=== PATIENT | female | born 1990 | race Caucasian/White ===

== ENCOUNTER 2021-08-13 15:54 | Emergency (ER) | payer OTHER, BC ==
[~2021-08-13] VITALS: Ht 167 cm; Wt 51.9 kg
[2021-08-13 16:06] VITALS: BP 127/76
[2021-08-13] MEDS ORDERED: KETOROLAC 30 MG/ML VIAL IVP STA (16:23)
[2021-08-13] MEDS ORDERED: ONDANSETRON 4 MG/2 ML (SDV) Z0FRAN IVP STA (16:23)
[2021-08-13] MEDS ORDERED: NS IV 1000 ML 1,000 ML IV STA (16:23)
[2021-08-13 16:28] LABS: BILIRUBIN,URINE NEGATIVE (NEGATIVE); CLARITY,URINE SL CLOUDY; COLOR,URINE YELLOW; GLUCOSE, URINE (UA) NEGATIVE (NEGATIVE); KETONES,URINE NEGATIVE (NEGATIVE); LEUKOCYTE ESTERASE ,URINE 1+ (NEGATIVE); NITRITE,URINE NEGATIVE (NEGATIVE); PH,URINE 5.5 (5-9); PROTEIN,URINE NEGATIVE (NEGATIVE)
[2021-08-13 16:35] LABS: RBC,URINE RARE /HPF
[2021-08-13 16:36] LABS: BACTERIA,URINE MODERATE /HPF; SQUAMOUS EPITHELIAL CELL,UR 0-2 /HPF
--- NOTE | 2021-08-13 16:44 | ED General ---
General Chief Complaint: General Problems/Pain Stated Complaint: WC,FALL,R ELBOW PAIN,SYNCOPAL EPISODE,HIT HEAD Nursing Triage Note: Patient has presented to ER with cc of passing out. 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 She now complains of a sore neck and a headache. She has not taken anything for the pain and came to ER for evaluation. Source of Information: Patient History of Present Illness Date Seen by Provider: August 13, 2021 Time Seen by Provider: 16:20 Initial Comments 30-year-old female presenting with complaints of passing out at work after her right elbow was hit by the handle of the heat press she was using to make T shirts. She had some pain in her right elbow and then turned around to continue working when suddenly she passed out. She states that actually she knew she was on the floor and was waking up shaking. She complains of headache, neck pain, right elbow pain. She has some nausea and had blurred vision for a few minutes. She has not had any actual vomiting but still feels a little nauseated. She has had a fainting episode before when she was and dehydrated with preeclampsia. She states her last menstrual period was last week and was normal. Timing/Duration: 1/2 Hour Severity: Moderate Modifying Factors: worse with Movement Associated Systoms: No Chest Pain, No Cough, No Diaphoresis, No Fever/Chills; Headaches; No Loss of Appetite, No Malaise; Nausea/Vomiting (nausea but no emesis); No Rash, No Seizure, No Shortness of Air; Syncope (fainted when she hit her elbow on handle of heat press for T shirts); No Weakness Allergies and Home Medications Allergies Coded Allergies: No Known Drug Allergies (Unverified , 08/13/21) Patient Home Medication List Home Medication List Reviewed: Yes Review of Systems Review of Systems Constitutional: No chills, No diaphoresis, No dizziness, No fever EENTM: blurred vision (when she first woke up); No ear discharge, No hearing loss, No ear pain, No double vision, No eye pain, No vision loss, No epistaxis, No nose congestion Respiratory: No cough, No short of breath Cardiovascular: No chest pain Gastrointestinal: no symptoms reported Genitourinary: no symptoms reported Musculoskeletal: see HPI Skin: No change in color Psychiatric/Neurological: See HPI Hematologic/Lymphatic: Denies Blood Clots, Denies Easy Bleeding, Denies Easy Bruising Past Gzsntif-Xutiya-Ywicea Hx Patient Social History Tobacco Use?: No Use of E-Cig and/or Vaping dev: No Substance use?: No Alcohol Use?: No Physical Exam Vital Signs Vital Signs - First Documented 08/13/21 16:06 Temp 36.6 Pulse 66 Resp 16 B/P (MAP) 127/76 (93) Pulse Ox 100 O2 Delivery Room Air Capillary Refill : Height, Weight, BMI Height: '" Weight: lbs. oz. kg; 18.00 BMI Method: General Appearance: No Apparent Distress, WD/WN HEENT: PERRL/EOMI, TMs Normal, Normal ENT Inspection, Pharynx Normal; No Photop hobia; Other (Increased cerumen in the canals bilaterally. No hemotympanum. No CSF drainage from nose or ears. No thomas sign, no raccoon sign) Neck: Full Range of Motion, Supple; No Tender Lateral; Tender Midline (Tender to palpation in the middle of the C-spine. There is no step-off or deformity.) Respiratory: Chest Non Tender, Lungs Clear, Normal Breath Sounds, No Accessory Muscle Use, No Respiratory Distress Cardiovascular: Regular Rate, Rhythm, Normal Peripheral Pulses Gastrointestinal: Normal Bowel Sounds, No Pulsatile Mass, Non Tender, Soft Rectal: Deferred Back: No CVA Tenderness, No Vertebral Tenderness Extremity: Normal Capillary Refill, Normal Inspection, No Calf Tenderness, No Pedal Edema, Other (Mild tenderness to the right lateral elbow. There is full range of motion. No crepitus or step-off) Neurologic/Psychiatric: Alert, Oriented x3, cotton tipper II-XII Norm as Tested Skin: Normal Color, Warm/Dry Progress/Results/Core Measures Suspected Sepsis SIRS Temperature: Pulse: 66 Respiratory Rate: 16 Laboratory Tests 08/13/21 16:40: White Blood Count 10.7 Blood Pressure 127 /76 Mean: 93 Laboratory Tests 08/13/21 16:40: Creatinine 0.70, Platelet Count 274, Total Bilirubin 0.6 Results/Orders Lab Results Laboratory Tests Test 08/13/21 15:57 08/13/21 16:06 08/13/21 16:40 Range/Units Urine Color YELLOW Urine Clarity SL CLOUDY Urine pH 5.5 5-9 Urine Specific [place] >=1.030 1.016-1.022 Urine Protein NEGATIVE NEGATIVE Urine Glucose (UA) NEGATIVE NEGATIVE Urine Ketones NEGATIVE NEGATIVE Urine Nitrite NEGATIVE NEGATIVE Urine Bilirubin NEGATIVE NEGATIVE Urine Urobilinogen 0.2 < = 1.0 MG/DL Urine Leukocyte Esterase 1+ H NEGATIVE Urine RBC (Auto) TRACE-I H NEGATIVE Urine RBC RARE /HPF Urine WBC 2-5 /HPF Urine Squamous Epithelial Cells 0-2 /HPF Urine Crystals NONE /LPF Urine Bacteria MODERATE H /HPF Urine Casts NONE /LPF Urine Mucus MODERATE H /LPF Urine Culture Indicated YES Glucometer 107 70-110 MG/DL White Blood Count 10.7 4.3-11.0 10^3/uL Red Blood Count 4.13 3.80-5.11 10^6/uL Hemoglobin 12.5 11.5-16.0 g/dL Hematocrit 37 35-52 % Mean Corpuscular Volume 89 80-99 fL Mean Corpuscular Hemoglobin 30 25-34 pg Mean Corpuscular Hemoglobin Concent 34 32-36 g/dL Red Cell Distribution Width 12.2 10.0-14.5 % Platelet Count 274 130-400 10^3/uL Mean Platelet Volume 10.1 9.0-12.2 fL Immature Granulocyte % (Auto) 0 % Neutrophils (%) (Auto) 68 42-75 % Lymphocytes (%) (Auto) 23 12-44 % Monocytes (%) (Auto) 7 0-12 % Eosinophils (%) (Auto) 1 0-10 % Basophils (%) (Auto) 0 0-10 % Neutrophils # (Auto) 7.3 1.8-7.8 10^3/uL Lymphocytes # (Auto) 2.5 1.0-4.0 10^3/uL Monocytes # (Auto) 0.8 0.0-1.0 10^3/uL Eosinophils # (Auto) 0.1 0.0-0.3 10^3/uL Basophils # (Auto) 0.0 0.0-0.1 10^3/uL Immature Granulocyte # (Auto) 0.0 0.0-0.1 10^3/uL Sodium Level 140 135-145 MMOL/L Potassium Level 3.5 L 3.6-5.0 MMOL/L Chloride Level 104 98-107 MMOL/L Carbon Dioxide Level 24 21-32 MMOL/L Anion Gap 12 5-14 MMOL/L Blood Urea Nitrogen 15 7-18 MG/DL Creatinine 0.70 0.60-1.30 MG/DL Estimat Glomerular Filtration Rate 120 BUN/Creatinine Ratio 21 Glucose Level 117 H 70-105 MG/DL Calcium Level 9.1 8.5-10.1 MG/DL Corrected Calcium 8.5-10.1 MG/DL Total Bilirubin 0.6 0.1-1.0 MG/DL Aspartate Amino Transf (AST/SGOT) 13 5-34 U/L Alanine Aminotransferase (ALT/SGPT) 8 0-55 U/L Alkaline Phosphatase 61 40-136 U/L Total Protein 7.1 6.4-8.2 GM/DL Albumin 4.6 H 3.2-4.5 GM/DL My Orders Orders - ADALID LASSITER MD Ua Culture If Indicated (08/13/21 16:22) Urine Bedside (08/13/21 16:22) Urine Culture (08/13/21 15:57) Comprehensive Metabolic Panel (08/13/21 16:23) Ed Iv/Invasive Line Start (08/13/21 16:23) Cbc With Automated Diff (08/13/21 16:23) Ns Iv 1000 Ml (Sodium Chloride 0.9%) (08/13/21 16:23) Ondansetron Injection (Zofran Injectio (08/13/21 16:23) Ketorolac Injection (Toradol Injection) (08/13/21 16:23) Ct Head/Cervical Spine Wo (08/13/21 16:37) Elbow 3 View Right (08/13/21 16:37) Vital Signs/I&O 08/13/21 16:06 Temp 36.6 Pulse 66 Resp 16 B/P (MAP) 127/76 (93) Pulse Ox 100 O2 Delivery Room Air Capillary Refill : Blood Pressure Mean: 93 Point of Care Testing Finger Stick Blood Glucose: 107 Progress Note #1: Progress Note Obtain CT scan of the head and cervical spine since she was complaining of pain after her syncopal episode. Urine showed negative test but she does have some leukocyte esterase and bacteria. She also has elevated specific gravity greater than 1.030 for some dehydration. Obtain x-rays of the right elbow since that was the initiating injury to cause her to faint. Check basic labs to ensure her blood counts and electrolytes kidney and liver function all look okay. For nausea try Zofran 4 mg IV. For hydration give 1 L normal saline IV fluid bolus. For pain try Toradol 30 mg IV Progress Note #2: Progress Note Labs are stable without acute significant abnormality. Her CT scan did not show any acute intracranial process or fracture and no cervical spine fracture. There was no fracture of her right elbow. She was feeling a little better after treatment and fluids here in the ED. Again will defer any antibiotic until her culture comes back since she was having UTI symptoms. When discussing results with the patient and family she denied needing anything stronger than [id number]-[id number] medications for her headache. We will release her to go back to work tomorrow but given the caveat that if she was having more problems or worsening symptoms to check with HR could be seen by work comp or follow-up through the clinic Diagnostic Imaging Diagonstic Imaging: CT Plain Films/CT/US/NM/MRI: c-spine, head Comments [facility] [place], [place] NAME: KEIKO SOFIA [facility] REC#: [id number] PT STATUS: REG ER : 1990 PHYSICIAN: ADALID LASSITER MD ADMIT DATE: 08/13/21/ER FS Draft Date of Exam:08/13/21 CT HEAD/CERVICAL SPINE WO PROCEDURE: CT head and CT cervical spine without contrast. TECHNIQUE: Multiple contiguous axial images were obtained through the brain and cervical spine without the use of intravenous contrast. Sagittal and coronal reformations through the cervical spine were then performed. Auto Exposure Controls were utilized during the CT exam to meet ALARA standards for radiation dose reduction. INDICATION: Syncope with head and neck injury. COMPARISON: No prior studies are available for comparison. CT HEAD: FINDINGS: Ventricles and sulci are within normal limits. No sulcal effacement or midline shift is identified. No acute intra-axial or extra-axial hemorrhage is detected. Cisterns are patent. There is minimal fluid in the right maxillary sinus. IMPRESSION: No acute intracranial process is detected. CT CERVICAL SPINE: FINDINGS: Curvature and alignment is normal. No fracture or subluxation is seen. Prevertebral tissues are within normal limits. Odontoid is intact. IMPRESSION: No acute bony abnormality is detected. Dictated on workstation # [id number] Dict: 08/13/211701 Trans: 08/13/211705 [id number] Interpreted by: JANICE TA MD Electronically signed by: Reviewed: Reviewed by Me Diagonstic Imaging: Xray Plain Films/CT/US/NM/MRI: elbow Comments [facility] [place] NAME: KEIKO SOFIA [facility] REC#: [id number] PT STATUS: REG ER : 1990 PHYSICIAN: ADALID LASSITER MD ADMIT DATE: 08/13/21/ER FS Draft Date of Exam:08/13/21 ELBOW 3 VIEW RIGHT INDICATION: Right elbow pain. TECHNIQUE: AP, oblique, and lateral views of the right elbow were obtained. FINDINGS: No fracture or acute bony abnormality is seen. There is a chronic appearing calcification at the tip of the olecranon process. IMPRESSION: No acute fracture. Chronic appearing calcification at the tip of the olecranon process. Dictated on workstation # [id number] Dict: 08/13/211701 Trans: 08/13/211702 [id number] Interpreted by: SANDRA PATEL MD Electronically signed by: Reviewed: Reviewed by Me Departure Impression Primary Impression: Vasovagal syncope Additional Impressions: Right elbow pain Dehydration Acute cystitis without hematuria Closed head injury with brief loss of consciousness Disposition: HOME, SELF-CARE Condition: Stable Departure-Patient Inst. Decision time for Depature: 17:49 Referrals: NO,LOCAL PHYSICIAN (PCP) Primary Care Physician [facility] [phone] if having continued problems or need follow up Patient Instructions: Contusion (DC), Dehydration, Adult ED, Fainting, Adult ED, Minor Head Injury, Adult ED Add. Discharge Instructions: Your tests do not show any fractures or bleeding internally. It does look like you are dehydrated and need to drink more water. Your urine did show some bacteria and white blood cells but since you do not have symptoms of UTI or bladder infection will hold off on any antibiotics until the urine culture comes back in 2 to 3 days. At that point if it shows that you need an antibiotic you will get a phone call so you could be started on the medication. You may take acetaminophen or ibuprofen as needed to help with pain. You could try applying ice to your elbow to help with pain and inflammation. Apply heat 10 to 15 minutes every 3-4 hours as needed. If having continued problems and concerns check back through the clinic or work comp as directed by your HR All discharge instructions reviewed with patient and/or family. Voiced understanding. Work/School Note: Work Release Form Date Seen in the Emergency Department: August 13, 2021 Return to Work: Aug 14, 2021 Restrictions: No Restrictions ADALID LASSITER MD August 13, 2021 16:44
[2021-08-13 16:53] LABS: BASOPHILS % (AUTO) 0 % (0-10); EOSINOPHILS # (AUTO) 0.1 10^3/uL (0.0-0.3); EOSINOPHILS % (AUTO) 1 % (0-10); HEMATOCRIT 37 % (35-52); HEMOGLOBIN 12.5 g/dL (11.5-16.0); LYMPHOCYTES # (AUTO) 2.5 10^3/uL (1.0-4.0); LYMPHOCYTES % (AUTO) 23 % (12-44); MEAN CORPUSCULAR HEMOGLOBIN 30 pg (25-34); MEAN CORPUSCULAR HGB CONC 34 g/dL (32-36); MEAN CORPUSCULAR VOLUME 89 fL (80-99); MEAN PLATELET VOLUME 10.1 fL (9.0-12.2); MONOCYTES # (AUTO) 0.8 10^3/uL (0.0-1.0); MONOCYTES % (AUTO) 7 % (0-12); NEUTROPHILS # (AUTO) 7.3 10^3/uL (1.8-7.8); NEUTROPHILS % (AUTO) 68 % (42-75); PLATELET COUNT 274 10^3/uL (130-400); WHITE BLOOD COUNT 10.7 10^3/uL (4.3-11.0)
--- NOTE | 2021-08-13 17:04 | Diagnostic Imaging Report ---
INDICATION: Right elbow pain. TECHNIQUE: AP, oblique, and lateral views of the right elbow were obtained. FINDINGS: No fracture or acute bony abnormality is seen. There is a chronic appearing calcification at the tip of the olecranon process. IMPRESSION: No acute fracture. Chronic appearing calcification at the tip of the olecranon process. Dictated by: Dictated on workstation # [id number]
--- NOTE | 2021-08-13 17:07 | Diagnostic Imaging Report ---
PROCEDURE: CT head and CT cervical spine without contrast. TECHNIQUE: Multiple contiguous axial images were obtained through the brain and cervical spine without the use of intravenous contrast. Sagittal and coronal reformations through the cervical spine were then performed. Auto Exposure Controls were utilized during the CT exam to meet ALARA standards for radiation dose reduction. INDICATION: Syncope with head and neck injury. COMPARISON: No prior studies are available for comparison. CT HEAD: FINDINGS: Ventricles and sulci are within normal limits. No sulcal effacement or midline shift is identified. No acute intra-axial or extra-axial hemorrhage is detected. Cisterns are patent. There is minimal fluid in the right maxillary sinus. IMPRESSION: No acute intracranial process is detected. CT CERVICAL SPINE: FINDINGS: Curvature and alignment is normal. No fracture or subluxation is seen. Prevertebral tissues are within normal limits. Odontoid is intact. IMPRESSION: No acute bony abnormality is detected. Dictated by: Dictated on workstation # [id number]
[2021-08-13 17:14] LABS: CARBON DIOXIDE 24 MMOL/L (21-32); CHLORIDE 104 MMOL/L (98-107); POTASSIUM 3.5 MMOL/L (3.6-5.0); SODIUM 140 MMOL/L (135-145)
[2021-08-13 17:15] LABS: ALANINE AMINOTRANSFERASE 8 U/L (0-55); ALBUMIN 4.6 GM/DL (3.2-4.5); ALKALINE PHOSPHATASE 61 U/L (40-136); BILIRUBIN,TOTAL 0.6 MG/DL (0.1-1.0); BUN/CREATININE RATIO 21; CALCIUM 9.1 MG/DL (8.5-10.1); GFR ESTIMATED 120; GLUCOSE 117 MG/DL (70-105); TOTAL PROTEIN 7.1 GM/DL (6.4-8.2)
== END 2021-08-13 17:55 | disposition home or self-care (01) ==
LOC: ER FS 15:56
DX: S06.0X9A Concussion with loss of consciousness of unspecified duration, initial encounter (principal); R55 Syncope and collapse; N30.00 Acute cystitis without hematuria; E86.0 Dehydration; M25.521 Pain in right elbow; Z32.02 Encounter for pregnancy test, result negative; W22.8XXA Striking against or struck by other objects, initial encounter; Y92.59 Other trade areas as the place of occurrence of the external cause; Y99.0 Civilian activity done for income or pay
CPT/HCPCS: 36415; 70450; 72125; 73080; 80053; 81000; 82947; 84703; 85025; 87088